=== PATIENT | female | born 1955 | race African-American/Black ===

== ENCOUNTER 2017-04-04 05:00 | Day surgery (SDC) | payer BC ==
[2017-03-28 12:27] VITALS: BMI 25.7
[2017-04-04] MEDS ORDERED: LIDOCAINE 1%/EPI 1:100000 (50 ML MULTI DOSE VIAL) ONE (11:28)
[2017-04-04] MEDS ORDERED: MICROFIBRILLAR COLLAGEN 1 GM EACH ONE (11:28)
[2017-04-04] MEDS ORDERED: PROPOFOL 20 ML ONE ×3 (11:47→12:56)
[2017-04-04] MEDS ORDERED: MIDAZOLAM HCL 2 MG/2 ML SINGLE DOSE VIAL ONE ×2 (11:47)
[2017-04-04] MEDS ORDERED: SUCCINYLCHOLINE CHLORIDE 200 MG/10 ML VIAL ONE (11:47)
--- NOTE | 2017-04-04 11:52 | HP ---
History & Physical Update - History History: No Change - Physical Physical: No Change - Assessment Assessment: No Change - Plan Plan: No Change (No change from H&P in paper chart. I introduced myself to the patient and informed her I will be assisting Dr. Madera with today's surgery.)
[2017-04-04] MEDS ORDERED: DESFLURANE GAS 240 ML BOTTLE IH ONE (12:03)
[2017-04-04] MEDS ORDERED: CLINDAMYCIN PHOSPHATE 600 MG/4 ML VIAL ONE (12:14)
[2017-04-04] MEDS ORDERED: CLINDAMYCIN PHOSPHATE 600 MG/4 ML VIAL IVPB ONE (12:21)
[2017-04-04] MEDS ORDERED: LIDOCAINE 1%/EPI 1:100000 (20 ML MULTI DOSE VIAL) INF ONE (12:30)
[2017-04-04] MEDS ORDERED: DEXAMETHASONE SOD PHOSPHATE 4 MG/1 ML VIAL ONE (12:39)
[2017-04-04] MEDS ORDERED: VASOPRESSIN 20 UNITS/ML VIAL IV ONE (12:41)
[2017-04-04] MEDS ORDERED: MICROFIBRILLAR COLLAGEN 1 GM EACH TP ONE (13:11)
[2017-04-04] MEDS ORDERED: LACTATED RINGERS SOLUTION 1,000 ML IV SCH ×2 (13:30→14:15)
--- NOTE | 2017-04-04 13:41 | OP ---
Operative Note - Note: Operative Date: 04/04/17 Pre-Operative Diagnosis: right thyroid nodule Operation: right hemithyroidectomy Post-Operative Diagnosis: Same as Pre-op Surgeon: Bhavik Madera Carton Forming Machine Tender: Taylor Lloyd Anesthesiologist/MANAGER OCCUPATIONAL: Linda Rizvi Anesthesia: General Specimens Removed: right thyroid lobe Estimated Blood Loss (mls): 10 Fluid Volume Replaced (mls): 1,000 Operative Report Dictated: Yes
--- NOTE | 2017-04-04 13:43 | SURG ---
Surgery Envelope Stamping Machine Operator Note Envelope Stamping Machine Operator: Taylor Lloyd PA-C Date of Service: 04/04/17 Diagnosis: right thyroid nodule Procedure: right hemithyroidectomy I was present for the entirety of the operative procedure. For further detail, please refer to operative report. Visit type - Case Type Case Type: Scheduled Admission - Emergency Emergency Visit: No - New patient This patient is new to me today: Yes Date on this admission: 04/04/17 - Critical Care Critical Care patient: No
[2017-04-04] MEDS: oxyCODONE HCL 5 MG TABLET PO PRN ×2 (14:00→16:00)
[2017-04-04] MEDS ORDERED: PROMETHAZINE HCL 25 MG/1 ML VIAL IVPUSH PRN (14:04)
[2017-04-04] MEDS ORDERED: ONDANSETRON 4 MG/2 ML VIAL IVPUSH PRN (14:04)
[2017-04-04] MEDS ORDERED: oxyCODONE HCL 5 MG TABLET ONE (15:49)
[2017-04-04 17:42] VITALS: PULSE 80; TEMP 98
[2017-04-04 17:46] VITALS: BP 140/80
--- NOTE | 2017-04-07 10:14 | OP ---
DATE OF OPERATION: 04/04/2017 SURGICAL ATTENDING: Manjit Wilhelm MD THREAD TOOL GRINDER SET UP OPERATOR: STEF Landry PREOPERATIVE DIAGNOSIS: Right thyroid nodule. POSTOPERATIVE DIAGNOSIS: Right thyroid nodule. ANESTHESIA: General endotracheal. PROCEDURE: 1. Right hemithyroidectomy. 2. Neck ultrasound. DESCRIPTION OF PROCEDURE: Patient was taken into the operating room, placed in a supine position, endotracheally intubated, positioned. The eyes were protected. Neck ultrasound was performed showing a large right thyroid nodule. An indistinct left thyroid nodule, which was small, was also identified with no suspicious features. No lymphadenopathy was seen. Patient was then prepped and draped in the usual sterile fashion. Local anesthesia was administered, and a 4.5-cm incision was made in the upper neck skin crease, carried down through subcutaneous tissues and platysma. Subplatysmal flaps were raised superiorly and inferiorly, and 5 hooks were placed for exposure. The median raphe was incised, and the right-sided strap muscles were elevated off the thyroid gland. The recurrent laryngeal nerve and the superior laryngeal nerves were identified and preserved. The superior, inferior, and posterior attachments were transected with care taken to preserve the parathyroid tissue. The isthmus was transected, and in this way, the right thyroid lobe was removed and sent to Pathology for permanent evaluation. The right thyroid lobe was checked for parathyroid tissue before it was handed off, and none was found. Hemostasis was achieved with electrocautery and Avitene. The wound was then closed in 3 layers. Sterile dressings were placed. The patient remained stable throughout the entire procedure. Dr. Wilhelm, the attending surgeon, was present throughout the entire procedure. MANJIT WILHELM M.D. [id number]
--- NOTE | 2017-04-07 14:05 | PATH ---
Surgical Pathology Report Patient Name: MICHELLE GARCIA [facility]. Rec. #: [id number] /Age/Gender: 1955 (Age: 61) / F Account: [id number] Location: [facility] SURGICAL Taken: 04/04/2017 Received: 04/04/2017 Reported: 04/07/2017 Physicians: Bhavik Madera M.D. Specimen(s) Received RIGHT THYROID NODULE Clinical History Thyroid nodule Final Diagnosis THYROID LOBE, RIGHT, HEMITHYROIDECTOMY: BENIGN THYROID TISSUE WITH MULTILOBULAR HYPERPLASIA WITH FOCAL DEGENERATIVE CHANGES. NO MALIGNANCY IDENTIFIED. Electronically Signed Gopal Nunes M.D. Gross Description Received in formalin labeled "right thyroid lobe," is a 25 g, 6.3 x 4.7 x 2.2 cm thyroid lobe. The outer capsule is intact. The specimen is inked blue and serially sectioned. Sectioning reveals multiple heterogeneous colloid nodules. The minimal remaining thyroid parenchyma is red-brown and heterogeneous. Product Technology Scientist sections are sequentially submitted from superior to inferior and 10 cassettes. /04/04/2017 saudi/04/04/2017
== END 2017-04-04 17:15 | disposition home or self-care (01) ==
LOC: JASU-SURG 05:00
PROVIDERS: ATTEND Surgery
PROC: 0GTH0ZZ Resection of Right Thyroid Gland Lobe, Open Approach (ICD-10-PCS; principal; 2017-04-04 11:00)
DX: E04.1 Nontoxic single thyroid nodule (principal)
CPT/HCPCS: 86850; 86900; 86901; 88307-TC; 94760